=== PATIENT | male | born 1960 | race Caucasian/White ===

== ENCOUNTER 2016-06-19 10:34 | Emergency (ER) | payer BC, MEDICAID ==
[~2016-06-19] VITALS: Ht 160 cm; Wt 52.2 kg
[2016-06-19] MEDS ORDERED: BREO1INH INH (10:55)
[2016-06-19] MEDS ORDERED: UNKNOWN BP MED (10:55)
[2016-06-19] MEDS ORDERED: ACET30TAB PO (12:24)
--- NOTE | 2016-06-19 12:44 | REP ---
AP view of the pelvis: Single view. History: Low back and bilateral hip pain. Findings: The bony pelvic ring is intact. No bony destructive lesion or fracture is seen. Sacrum and SI joints are unremarkable. Proximal femurs are intact. Hip joint spaces are preserved. Impression: Negative AP view of the pelvis. Signed by Jp Rmaos MD 06/19/2016 01:44 P
--- NOTE | 2016-06-19 12:47 | REP ---
Lumbar spine series: Six views. History: Low back pain. Bilateral hip pain. Comparison radiographs are from October 14, 2015. Findings: Lumbar vertebral body heights are preserved. Alignment is normal. There is degenerative disc narrowing and discogenic spurring at L4-5, L3-4, L2-3 and to a lesser extent at L5-S1. This is unchanged. No fracture or collapse is seen. Pedicles and posterior elements are intact. Psoas margins are symmetric. Sacrum and SI joints are unremarkable. Impression: Degenerative disc disease at multiple levels, unchanged from the comparison study. No acute bony abnormality. Signed by Jp Ramos MD 06/19/2016 01:45 P
[2016-06-19 13:01] VITALS: BP 158/98
== END 2016-06-19 13:08 | disposition home or self-care (01) ==
LOC: M ED 11:21
DX: M54.16 Radiculopathy, lumbar region (principal)

== ENCOUNTER 2017-04-29 08:13 | Emergency (ER) | payer OTHER ==
[2017-04-29] MEDS: KETOROLAC 60 MG/2 ML VIAL (J1885) IM (09:16)
== END 2017-04-29 09:36 | disposition home or self-care (01) ==
LOC: M ED 08:13
DX: S39.82XA Other specified injuries of lower back, initial encounter (principal); I10 Essential (primary) hypertension; J44.9 Chronic obstructive pulmonary disease, unspecified; F17.210 Nicotine dependence, cigarettes, uncomplicated; X50.0XXA Overexertion from strenuous movement or load, initial encounter; Y92.099 Unspecified place in other non-institutional residence as the place of occurrence of the external cause; Y93.89 Activity, other specified
CPT/HCPCS: J1885

== ENCOUNTER → 2017-05-26 | Outpatient (REF) | payer OTHER ==
[2017-05-26 12:45] LABS: BASO # 0.1 10^3/uL (0.0-0.2); BASO % 0.7 % (0.0-1.0); EOS # 0.4 10^3/uL (0.0-0.50); EOS % 2.9 % (0.0-3.0); HEMATOCRIT 50.2 % (42.0-52.0); HEMOGLOBIN 16.4 g/dl (14.0-18.0); IMMATURE GRANULOCYTE # 0.1 10^3/uL (0-0); IMMATURE GRANULOCYTE % 0.5 % (0-3.0); LYMPH # 1.8 10^3/uL (1.5-4.5); LYMPH % 14.8 % (24.0-44.0); MEAN CORPUSCULAR HEMOGLOBIN 30.4 pg (27.0-33.0); MEAN CORPUSCULAR HGB CONC 32.7 g/dl (32.0-36.5); MONO # 1.2 10^3/uL (0.0-0.8); MONO % 10.1 % (0.0-5.0); NEUTROPHILS # 8.6 10^3/uL (1.8-7.7); PLATELET COUNT, AUTOMATED 328 10^3/uL (150-450); RED CELL DISTRIBUTION WIDTH 13.5 % (11.5-14.5); WHITE BLOOD COUNT 12.2 10^3/uL (4.0-10.0)
[2017-05-26 13:14] LABS: ALBUMIN/GLOBULIN RATIO 1.25 (1.00-1.93); ALKALINE PHOSPHATASE 46 U/L (45-117); ALT/SGPT 16 U/L (12-78); ANION GAP 6 MEQ/L (8-16); AST/SGOT 8 U/L (7-37); BILIRUBIN,TOTAL 0.5 MG/DL (0.2-1.0); BLOOD UREA NITROGEN 27 MG/DL (7-18); CALCIUM LEVEL 9.1 MG/DL (8.5-10.1); CARBON DIOXIDE LEVEL 30 MEQ/L (21-32); CHLORIDE LEVEL 107 MEQ/L (98-107); CHOLESTEROL LEVEL 150 MG/DL (<200); CHOLESTEROL RISK RATIO 4.166 (<5); CREATININE FOR GFR 1.13 MG/DL (0.70-1.30); GLOMERULAR FILTRATION RATE > 60.0 (>56); GLUCOSE, FASTING 96 MG/DL (70-100); HDL CHOLESTEROL 36 MG/DL (>40); LDL CHOLESTEROL 98.6 MG/DL (<100); NON-HDL-C 114 MG/DL; POTASSIUM SERUM 4.6 MEQ/L (3.5-5.1); PROSTATIC SPECIFIC AG MONITOR 0.76 NG/ML (< 4.0); SODIUM LEVEL 143 MEQ/L (136-145); THYROID STIMULATING HORMONE 0.857 uIU/ML (0.358-3.740); TOTAL PROTEIN 7.2 GM/DL (6.4-8.2); TRIGLYCERIDES LEVEL 77 MG/DL (<150)
[2017-05-26 13:16] LABS: ESTIMATED AVERAGE GLUCOSE 114 MG/DL (60-110); HEMOGLOBIN A1c 5.6 %
== END ==
LOC: M LABDRWAD 12:23
DX: R39.198 Other difficulties with micturition (principal); M25.551 Pain in right hip; M25.552 Pain in left hip; M54.5 Low back pain; I10 Essential (primary) hypertension; Z79.899 Other long term (current) drug therapy; J44.9 Chronic obstructive pulmonary disease, unspecified; E55.9 Vitamin D deficiency, unspecified
CPT/HCPCS: 84443

== ENCOUNTER → 2017-08-12 | Outpatient (CLI) | payer OTHER | LOC: M RAD 09:50 | DX: M51.36 Other intervertebral disc degeneration, lumbar region (principal) | CPT/HCPCS: 72072 ==

== ENCOUNTER → 2017-08-25 | Outpatient (REF) | payer OTHER ==
[2017-08-25 12:53] LABS: C REACTIVE PROTEIN QUANTITATIV 0.43 MG/DL (0.00-0.30); CHOLESTEROL LEVEL 148 MG/DL (<200); CHOLESTEROL RISK RATIO 4.111 (<5); HDL CHOLESTEROL 36 MG/DL (>40); NON-HDL-C 112 MG/DL; TRIGLYCERIDES LEVEL 90 MG/DL (<150)
[2017-08-25 12:55] LABS: ERYTHROCYTE SEDIMENTATION RATE 6 mm/hr (0-20)
[2017-08-26 11:21] LABS: HEPATITIS C VIRUS ABY INDEX < 0.0 INDEX (<0.8)
[2017-08-26 11:23] LABS: HIV 1&2 SCREEN CENTAUR NEGATIVE (NEGATIVE)
== END ==
LOC: M LAB REF 12:09
DX: Z11.4 Encounter for screening for human immunodeficiency virus [HIV] (principal); Z13.220 Encounter for screening for lipoid disorders; Z11.59 Encounter for screening for other viral diseases; M54.5 Low back pain

== ENCOUNTER → 2017-09-29 | Outpatient (CLI) | payer OTHER | LOC: M RAD 07:47 | DX: Z12.2 Encounter for screening for malignant neoplasm of respiratory organs (principal); Z87.891 Personal history of nicotine dependence; R91.8 Other nonspecific abnormal finding of lung field; J84.10 Pulmonary fibrosis, unspecified | CPT/HCPCS: G0297 ==

== ENCOUNTER 2017-10-31 08:37 | Day surgery (SDC) | payer OTHER ==
[2017-10-31] MEDS ORDERED: LIDOCAINE 2% INJ 100 MG/5 ML SDV (FOR ANES.) As Ordered (09:03)
[2017-10-31] MEDS ORDERED: PROPOFOL 200 MG/20 ML VIAL As Ordered (09:26)
[2017-10-31] MEDS ORDERED: NS 1,000 ML IV (09:30)
== END 2017-10-31 10:20 | disposition home or self-care (01) ==
LOC: M OPP 08:37
DX: Z12.11 Encounter for screening for malignant neoplasm of colon (principal); K57.30 Diverticulosis of large intestine without perforation or abscess without bleeding; I10 Essential (primary) hypertension; M19.90 Unspecified osteoarthritis, unspecified site; J44.9 Chronic obstructive pulmonary disease, unspecified; G47.30 Sleep apnea, unspecified; F17.210 Nicotine dependence, cigarettes, uncomplicated; Z79.899 Other long term (current) drug therapy
CPT/HCPCS: 45378

== ENCOUNTER 2017-12-19 14:04 | Outpatient (RCR) | payer OTHER | END 2018-01-01 | LOC: M PT 12-23 08:09 | DX: M54.5 Low back pain (principal) ==

== ENCOUNTER → 2017-12-28 | Outpatient (CLI) | payer OTHER | LOC: M SLEEP 19:36 | DX: G47.33 Obstructive sleep apnea (adult) (pediatric) (principal) | CPT/HCPCS: 95811 ==

== ENCOUNTER 2018-01-13 08:44 | Outpatient (RCR) | payer OTHER | END 2018-02-01 | LOC: M PT 08:44 | DX: M54.5 Low back pain (principal) | CPT/HCPCS: 97010 ==

== ENCOUNTER 2018-05-20 08:50 | Emergency (ER) | payer OTHER, SELFPAY ==
[~2018-05-20] VITALS: Ht 160 cm; Wt 51.4 kg
[~2018-05-20 08:50] MED LIST: ACET30TAB PO; AMLO5TAB6 PO; BREO1INH INH; IBUP-1114 PO; LISI-538 PO; METO1TAB33 PO; UNKNOWN BP MED; VENTAER INH
[2018-05-20] MEDS ORDERED: METO1TAB33 PO (08:57)
[2018-05-20] MEDS ORDERED: ACETAMINOPHEN 325 MG TAB PO ONE (09:30)
[2018-05-20 09:49] LABS: BASO % 0.4 % (0.0-1.0); EOS % 0.1 % (0.0-3.0); HEMOGLOBIN 16.6 g/dl (13.5-17.5); LYMPH % 9.8 % (24.0-44.0); MEAN CORPUSCULAR HEMOGLOBIN 31.1 pg (27.0-33.0); MEAN CORPUSCULAR HGB CONC 33.2 g/dl (32.0-36.5); MEAN CORPUSCULAR VOLUME 93.6 fl (80.0-96.0); MONO # 1.4 10^3/uL (0.0-0.8); MONO % 13.6 % (0.0-5.0); NEUTROPHILS # 7.7 10^3/uL (1.8-7.7); NEUTROPHILS % 75.7 % (36.0-66.0); PLATELET COUNT, AUTOMATED 202 10^3/uL (150-450); RED BLOOD COUNT 5.34 10^6/uL (4.30-6.10); WHITE BLOOD COUNT 10.2 10^3/uL (4.0-10.0)
[2018-05-20 10:04] LABS: INFLUENZA A AMPLIFICATION POSITIVE (NEGATIVE); INFLUENZA B AMPLIFICATION NEGATIVE (NEGATIVE)
[2018-05-20 10:16] LABS: ALBUMIN 4.3 GM/DL (3.2-5.2); ALT/SGPT 14 U/L (12-78); BILIRUBIN,TOTAL 0.5 MG/DL (0.2-1.0); BLOOD UREA NITROGEN 18 MG/DL (7-18); CALCIUM LEVEL 8.5 MG/DL (8.5-10.1); CARBON DIOXIDE LEVEL 27 MEQ/L (21-32); CHLORIDE LEVEL 104 MEQ/L (98-107); CREATININE FOR GFR 1.18 MG/DL (0.70-1.30); GLOMERULAR FILTRATION RATE > 60.0 (>56); GLUCOSE, FASTING 103 MG/DL (70-100); SODIUM LEVEL 136 MEQ/L (136-145); TOTAL PROTEIN 7.8 GM/DL (6.4-8.2)
[2018-05-20] MEDS ORDERED: IPRATROPIUM 0.5MG/ALBUTEROL 2.5MG INH SOL UD 3ML (DUONEB)(J7620) NEB ONE (10:30)
--- NOTE | 2018-05-20 10:37 | REP ---
CHEST PA/LATERAL: 05/20/2018. COMPARISON: Low-dose lung screening CT 09/29/2017, chest x-ray 10/16/2015. CLINICAL HISTORY: Fever, dyspnea, COPD. FINDINGS: Two views show the lung de jesus well inflated. CP angles are sharply defined. There is peribronchial thickening that may reflect bronchitis or reactive airway disease. In the infrahilar region on the lateral view, more elongated thickened bronchial mancilla noted that may reflect some bronchiectasis. (Mild cylindrical bronchiectasis is seen on that CT last year.) No effusion or dense consolidation. No mass. The heart, mediastinal, hilar, and aortic contours unremarkable. Airway intact. Bones without acute finding. No free air. IMPRESSION: 1. Perihilar changes of bronchitis or bronchiectasis without dense consolidation, pleural effusion, or other significant finding. Electronically Signed by Cisco Pastrana MD 05/20/2018 07:38 P
[2018-05-20] MEDS ORDERED: MUCI30TA5 PO (10:43)
[2018-05-20] MEDS ORDERED: OSEL75CA PO (10:43)
[2018-05-20] MEDS ORDERED: VENTAER INH (10:43)
[2018-05-20] MEDS ORDERED: PRED20TA PO (10:43)
[2018-05-20 11:01] VITALS: BP 109/69
== END 2018-05-20 11:02 | disposition home or self-care (01) ==
LOC: M ED 08:50
DX: J20.9 Acute bronchitis, unspecified (principal); J09.X2 Influenza due to identified novel influenza A virus with other respiratory manifestations; J44.9 Chronic obstructive pulmonary disease, unspecified; I10 Essential (primary) hypertension; Z72.0 Tobacco use; Z79.899 Other long term (current) drug therapy

== ENCOUNTER 2018-09-23 08:39 | Emergency (ER) | payer OTHER, SELFPAY ==
[~2018-09-23] VITALS: Ht 160 cm; Wt 53.9 kg
[~2018-09-23 08:39] MED LIST changes: +ACET-716 PO; -ACET30TAB PO; +MUCI30TA5 PO; +OSEL75CA PO; +PRED20TA PO
[2018-09-23] MEDS ORDERED: ACETAMINOPHEN TAB 650MG DOSE (2X325MG) PO ONE (09:30)
[2018-09-23] MEDS ORDERED: LISINOPRIL 20 MG TAB PO ONE (09:45)
[2018-09-23] MEDS ORDERED: amLODIPine 5 MG TAB PO ONE (09:45)
[2018-09-23] MEDS ORDERED: METOPROLOL SUCC (TopROL XL) 100MG *XL* TAB PO ONE (09:45)
[2018-09-23] MEDS ORDERED: LISI-538 PO (10:17)
[2018-09-23] MEDS ORDERED: NORV5TAB PO (10:17)
--- NOTE | 2018-09-23 10:20 | REP ---
PA and lateral chest: Comparisons are 10/16/2015 and 05/20/2018. The lung de jesus are clear. The cardiac size is normal. The mireille, mediastinum, and skeletal structures are unremarkable. There is a small stable granuloma in the right mid lung, unchanged from 10/16/2015. Impression: Negative PA and lateral chest. There is no interval change. Electronically Signed by Jeancarlos Tavares MD 09/23/2018 10:11 A
[2018-09-23] MEDS ORDERED: CYCL10TA PO (10:21)
[2018-09-23 11:03] VITALS: BP 173/98
[2018-09-23 12:16] VITALS: BP 160/98
== END 2018-09-23 12:17 | disposition home or self-care (01) ==
LOC: M ED 08:39
DX: R31.9 Hematuria, unspecified (principal); I10 Essential (primary) hypertension; M25.551 Pain in right hip; M25.552 Pain in left hip; Z79.899 Other long term (current) drug therapy; F17.210 Nicotine dependence, cigarettes, uncomplicated

== ENCOUNTER → 2018-10-26 | Outpatient (REF) | payer OTHER ==
[~2018-10-26] MED LIST changes: +CYCL10TA PO; +NORV5TAB PO
[2018-10-26 13:11] LABS: BASO # 0.1 10^3/uL (0.0-0.2); BASO % 1.5 % (0.0-1.0); EOS # 0.3 10^3/uL (0.0-0.50); EOS % 4.1 % (0.0-3.0); HEMATOCRIT 45.5 % (42.0-52.0); HEMOGLOBIN 15.4 g/dl (13.5-17.5); LYMPH % 26.4 % (24.0-44.0); MEAN CORPUSCULAR HEMOGLOBIN 30.8 pg (27.0-33.0); MEAN CORPUSCULAR HGB CONC 33.8 g/dl (32.0-36.5); MONO # 0.7 10^3/uL (0.0-0.8); MONO % 8.9 % (0.0-5.0); NEUTROPHILS # 4.4 10^3/uL (1.8-7.7); PLATELET COUNT, AUTOMATED 317 10^3/uL (150-450); WHITE BLOOD COUNT 7.4 10^3/uL (4.0-10.0)
[2018-10-26 13:29] LABS: ALBUMIN 3.7 GM/DL (3.2-5.2); ALT/SGPT 16 U/L (12-78); BILIRUBIN,TOTAL 0.4 MG/DL (0.2-1.0); BLOOD UREA NITROGEN 18 MG/DL (7-18); CARBON DIOXIDE LEVEL 28 MEQ/L (21-32); CHLORIDE LEVEL 111 MEQ/L (98-107); CHOLESTEROL LEVEL 162 MG/DL (<200); CHOLESTEROL RISK RATIO 4.263 (<5); CREATININE FOR GFR 0.99 MG/DL (0.70-1.30); GLOMERULAR FILTRATION RATE > 60.0 (>56); GLUCOSE, FASTING 89 MG/DL (70-100); HDL CHOLESTEROL 38 MG/DL (>40); LDL CHOLESTEROL 105 MG/DL (<100); NON-HDL-C 124 MG/DL; POTASSIUM SERUM 4.7 MEQ/L (3.5-5.1); SODIUM LEVEL 143 MEQ/L (136-145); TRIGLYCERIDES LEVEL 97 MG/DL (<150)
[2018-10-26 13:44] LABS: HEMOGLOBIN A1c 6.4 %
== END ==
LOC: M LAB REF 12:46
PROVIDERS: ATTEND Nurse Practitioner Family
DX: I10 Essential (primary) hypertension (principal); Z13.29 Encounter for screening for other suspected endocrine disorder

== ENCOUNTER → 2019-01-23 | Outpatient (REF) | payer OTHER ==
[2019-01-23 13:19] LABS: ALBUMIN 3.7 GM/DL (3.2-5.2); ALT/SGPT 10 U/L (12-78); BILIRUBIN,TOTAL 0.4 MG/DL (0.2-1.0); BLOOD UREA NITROGEN 16 MG/DL (7-18); CALCIUM LEVEL 9.2 MG/DL (8.5-10.1); CARBON DIOXIDE LEVEL 29 MEQ/L (21-32); CHLORIDE LEVEL 110 MEQ/L (98-107); CHOLESTEROL LEVEL 169 MG/DL (<200); CHOLESTEROL RISK RATIO 4.225 (<5); CREATININE FOR GFR 1.05 MG/DL (0.70-1.30); GLOMERULAR FILTRATION RATE > 60.0 (>56); GLUCOSE, FASTING 101 MG/DL (70-100); HDL CHOLESTEROL 40 MG/DL (>40); HEMOGLOBIN A1c 5.3 %; LDL CHOLESTEROL 114 MG/DL (<100); NON-HDL-C 129 MG/DL; POTASSIUM SERUM 4.7 MEQ/L (3.5-5.1); SODIUM LEVEL 142 MEQ/L (136-145); TOTAL PROTEIN 6.8 GM/DL (6.4-8.2); TRIGLYCERIDES LEVEL 77 MG/DL (<150)
== END ==
LOC: M LAB REF 12:23
PROVIDERS: ATTEND Nurse Practitioner Family
DX: Z00.01 Encounter for general adult medical examination with abnormal findings (principal)

== ENCOUNTER → 2019-11-30 | Outpatient (CLI) | payer BC, OTHER ==
[~2019-11-30] MED LIST changes: +AMLO1TAB24 PO; -AMLO5TAB6 PO; +CYCL-707 PO; -CYCL10TA PO
--- NOTE | 2019-12-31 16:25 | REP ---
LOW-DOSE SCREENING CT OF THE LUNGS COMPARISON: 09/29/2017. REASON FOR EXAM: Tobacco abuse. Follow-up. FINDINGS: Once again, as per the protocol, only lung window images were sent to the read station for interpretation. Once again, there are numerable stable appearing calcified and noncalcified pulmonary nodules. There is no evidence of a definite new abnormal nodule, mass, or opacity. Once again, the lung de jesus are hyperexpanded and there is biapical pleural parenchymal scarring with small bullae and pleural blebs status quo. Once again, there is cylindrical bronchiectasis status quo. There are no pleural or pericardial effusions. Grossly the mediastinum and pulmonary mireille are unchanged. Grossly the imaged upper abdomen and imaged osseous structures are unchanged. IMPRESSION: Numerable, but stable appearing, calcified and noncalcified pulmonary nodules. Lung-RADS Category [address] of the chest is recommended as per the revised Fleischner Society Criteria. MTDD
== END ==
LOC: M RAD 06:48
PROVIDERS: ATTEND Physician Assistant
DX: Z72.0 Tobacco use (principal); J44.9 Chronic obstructive pulmonary disease, unspecified; R91.8 Other nonspecific abnormal finding of lung field

== ENCOUNTER → 2020-01-14 | Outpatient (CLI) | payer BC ==
--- NOTE | 2020-01-18 05:25 | ECWPNPC ---
PATIENT NAME: JUNIOR PALUMBO : 1960 GENDER: MALE VISIT DATE: 01/14/2020 DISCHARGE DATE: 01/14/20 1011 VISIT LOCKED DATE TIME: PHYSICIAN: JUSTEN SULLIVAN RESOURCE: JUSTEN SULLIVAN REASON FOR APPOINTMENT 1. 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 PAIN BEGAN ABOUT ONE YEAR AGO. 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 PAIN IS LOCATED ACROSS LOW BACK WITH INTERMITTENT SHOOTING PAIN INTO HIS THIGHS. PAIN IS AGGRAVATED BY INCREASED ACTIVITY AND LIFTING. PAIN IS RELIEVED SOMEWHAT WITH IBUPROFEN, TYLENOL AND HEAT. STATES HE HAD AN X-RAY OF THE LUMBAR SPINE ONE YEAR AGO. FINISHED PHYSICAL THERAPY APPROXIMATELY 4 MONTHS AGO. REPORTS SOME IMPROVEMENT WITH PHYSICAL THERAPY BUT THEN PAIN RETURNED TO BASELINE. 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 LIVES WITH HIS WHO IS DISABLED. DISCUSSED TREATMENT PLAN. DENIES RECENT FEVER OR ILLNESS OR SUDDEN WEIGHT LOSS. DENIES BOWEL OR BLADDER INCONTINENCE. PHQ-9 LITTLE INTEREST OR PLEASURE IN DOING THINGSSEVERAL DAYS FEELING DOWN, DEPRESSED, OR HOPELESSSEVERAL DAYS TROUBLE FALLING OR STAYING ASLEEP, OR SLEEPING TOO MUCHNEARLY EVERY DAY FEELING TIRED OR HAVING LITTLE ENERGYNEARLY EVERY DAY POOR APPETITE OR OVEREATING NOT AT ALL FEELING BAD ABOUT YOURSELF-OR THAT YOU ARE A FAILURE OR HAVE LET YOURSELF OR YOUR FAMILY DOWN SEVERAL DAYS TROUBLE CONCENTRATING ON THINGS, SUCH READING THE NEWSPAPER OR WATCHING TELEVISION SEVERAL DAYS MOVING OR SPEAKING SO SLOWLY THAT OTHER PEOPLE COULD HAVE NOTICED. OR THE OPPOSITE- BEING SO FIDGETY OR RESTLESS THAT YOU HAVE BEEN MOVING AROUND A LOT MORE THAN USUALNOT AT ALL THOUGHTS THAT YOU WOULD BE BETTER OFF , OR OF HURTING YOURSELF IN SOME WAY?NOT AT ALL TOTAL SCORE:10 INTERPRETATIONMODERATE DEPRESSION PHQ-2 (2015 EDITION) LITTLE INTEREST OR PLEASURE IN DOING THINGS?SEVERAL DAYS FEELING DOWN, DEPRESSED, OR HOPELESS?SEVERAL DAYS TOTAL SCORE2 GENERAL: - -. FALL RISK SCREENING: SCREENING :NO FALLS REPORTED IN THE LAST YEAR PAIN SCREENING: PATIENT HAS A COMPLAINT OF ACUTE OR CHRONIC PAIN :YES LOCATION OF PAIN:LOW BACK INTENSITY OF PAIN (SCALE OF 1 TO 10):4 WHAT DOES YOUR PAIN FEEL LIKE:SHARP, OTHER PULLING SENSATION DURATION:CONTINOUS PAIN IS INCREASED BY:ACTIVITIES, PROLONGED STANDING PAIN IS DECREASED BY:USE OF PAIN MEDICATIONS NURSING NOTE: - -. PAIN CENTER INTAKE QUESTIONS: DO YOU HAVE A HISTORY OF MRSA? :NO DO YOU TAKE A BLOOD THINNERS? :NO DO YOU HAVE ANY BLEEDING DISORDERS? :NO ANY NEW NUMBNESS OR WEAKNESS IN YOUR LEGS OR ARMS? :YES BILAT LEG WEAKNESS ANY PACEMAKER,DEFIBRILLATOR, OR DORSAL COLUMN STIMULATOR? :NO DO YOU HAVE ANY RASHES OR OPEN SORES? :NO ARE YOU ALLERGIC TO IV DYE? :NO ARE YOU DIABETIC? :NO ANY NEW PROBLEMS WITH YOUR MEDICATIONS? :NO HAVE YOU RECEIVED A VACCINE IN THE PAST 30 DAYS? :NO DO YOU PLAN TO RECEIVE A VACCINE IN THE NEXT 21 DAYS? :NO DO YOU NEED ANY PRESCRIPTION? :NO DO YOU TAKE ANY IMMUNOSUPPRESSIVE MEDICATIONS? :NO CURRENT MEDICATIONS TAKING LISINOPRIL 20 MG TABLET 1 TABLET ORALLY ONCE A DAY TAKING TOPROL XL 100 MG TABLET EXTENDED RELEASE 24 HOUR 1 TABLET ORALLY ONCE A DAY TAKING VENTOLIN HFA 108 (90 BASE) MCG/ACT AEROSOL SOLUTION 1 PUFF NEEDED INHALATION EVERY 4 HRS TAKING LIDOCAINE & ADHESIVE SHEET 5 % KIT DIRECTED EXTERNALLY TAKING CYCLOBENZAPRINE HCL 10 MG TABLET DIRECTED ORALLY TID PRN TAKING MAY HAVE - - FLUTICASONE PROPIONATE AND SALMETEROL INHALATION POWDER 113 MCG/14 MCG INH 1 PUFF BY MOUTH TWICE DAILY, RINSE MOUTH AFTER USE NOT-TAKING AMLODIPINE BESYLATE 5 MG TABLET 1 TABLET ORALLY ONCE A DAY NOT-TAKING MOBIC 7.5 MG TABLET 1 TABLET ORALLY ONCE A DAY MEDICATION LIST REVIEWED AND RECONCILED WITH THE PATIENT PAST MEDICAL HISTORY HTN COPD ALLERGIES N.K.D.A. SURGICAL HISTORY DENIES PAST SURGICAL HISTORY FAMILY HISTORY FATHER: MOTHER: 2 SISTER(S) . 1 SON(S) , 1 DAUGHTER(S) - HEALTHY. SOCIAL HISTORY GENERAL: TOBACCO USE ARE YOU A:CURRENT SMOKER ARE YOU INTERESTED IN QUITTING?THINKING ABOUT QUITTING HOW MANY CIGARETTES A DAY DO YOU SMOKE?11-20 LATEX QUESTIONNAIRE LATEX ALLERGY : HAVE YOU EVER DEVELOPED ANY TYPE OF REACTION AFTER HANDLING LATEX PRODUCTS SUCH RUBBER GLOVES, CONDOMS, DIAPHRAGMS, BALLOONS, SOCKS, OR UNDERWEAR?NO LATEX ALLERGY : HAVE YOU EVER DEVELOPED ANY TYPE OF REACTION DURING OR AFTER DENTAL APPOINTMENT, VAGINAL/RECTAL EXAMINATION, SURGICAL PROCEDURE, OR ANY OTHER EXPOSURE?NO LATEX RISK : HAVE YOU EVER HAD ANY DIFFICULTY BREATHING OR HIVES AFTER EATING OR HANDLING ANY FRUITS, OR VEGETABLES; SUCH KIWI, BANANAS, STONE FRUITS, OR CHESTNUTSNO LATEX RISK : DO YOU HAVE A PREVIOUS PERSONAL HISTORY OF MORE THAN NINE SURGERIES, SPINA BIFIDA, OR REPEATED CATHERIZATIONS? NO LATEX RISK : ARE YOU FREQUENTLY EXPOSED TO LATEX PRODUCTS IN YOUR OCCUPATION?NO DATE ASKED : 01/10/2020 ALCOHOL SCREENING DID YOU HAVE A DRINK CONTAINING ALCOHOL IN THE PAST YEAR?NO POINTS0 INTERPRETATIONNEGATIVE RECREATIONAL DRUG USE DRUG USE?NO LANGUAGE LANGUAGES SPOKEN:[facility] PFS, CLERGY, PUBLIC HEALTH REFERRALS HAS THE PATIENT BEEN EDUCATED REGARDING HIS/HER PLAN OF CARE?YES HAS THE PATIENT BEEN EDUCATED REGARDING PAIN, THE RISK FOR PAIN, THE IMPORTANCE OF EFFECTIVE PAIN MANAGEMENT, AND THE PAIN ASSESSMENT PROCESS?YES HOSPITALIZATION/MAJOR DIAGNOSTIC PROCEDURE DENIES PAST HOSPITALIZATION REVIEW OF SYSTEMS CONSTITUTIONAL: ANY RECENT FEVER NO . CHILLS NO . WEIGHT CHANGE OF UNKNOWN REASONS NO . MUSCULOSKELETAL: ANY UNUSUAL JOINT PAIN OR SWELLING NOT MENTIONED NO . SYSTEMIC LUPUS NO . ANY NEUROMUSCULAR DISORDER NOT MENTIONED NO . LYME DISEASE NO . GASTROENTEROLOGY: ANY NEW CHANGE IN BOWEL CONTROL? NO . HISTORY OF LIVER DISORDER NOT MENTIONED NO . HISTORY OF UNUSUAL ABDOMINAL PAIN OR CRAMPING NOT MENTIONED NO . NO CONSTIPATION. GENITOURINARY: ANY NEW CHANGE IN BLADDER CONTROL? NO . ANY RENAL/KIDNEY CONDITON NOT MENTIONED NO . NEUROLOGY: HISTORY OF TBI NOT MENTIONED NO . OTHER NEW NUMBNESS OR PAIN PATTERNS NOT MENTIONED NO . NEW ONSET DIZZINESS OR NEUROLOGICAL CHANGES NOT MENTIONED NO . HISTORY OF SEVERE HEADACHES NOT MENTIONED NO . HISTORY OF STROKE OR NEUROLOGICAL DISORDER NOT MENTIONED NO . CARDIOLOGY: HEART SURGERY NO . CONGESTIVE HEART FAILURE/FLUID OVERLOAD NOT MENTIONED NO . HISTORY OF CHEST PAIN,IRREGULAR HEART BEAT NOT MENTIONED NO . RESPIRATORY: SHORTNESS OF BREATH ON EXERTION, WHEEZES, UNUSUAL COUGH NOT MENTIONED NO . ENDOCRINOLOGY: ADRENAL GLAND OR THYROID DISORDERS NOT MENTIONED NO . UNUSUAL URINATION, DIZZINESS OR LETHARGY NOT MENTIONED NO . VITAL SIGNS WT 119.8 LBS, HT 63 IN, BMI 21.22 INDEX, BP 144/83 MM HG, HR 87 /MIN, RR 16 /MIN, TEMP 97.3 F, OXYGEN SAT % 100%, BLOOD GLUCOSE LEVEL 97.3, SAFE IN ENV? (Y/N) YES, REVIEWED BY: DONNA. EXAMINATION GENERAL EXAMINATION: GENERAL AWAKE,ALERT ,PLEASANT . PSYCH AFFECT NORMAL . NECK: TRACHEA MIDLINE. NO CERVICAL OR SUPRACLAVICULAR LYMPHADENOPATHY NOTED. LUNGS: LUNG DISLA ARE CLEAR TO AUSCULTATION BILATERALLY. GOOD MOVEMENT OF AIR . HEART: S1, S2 IN A REGULAR RATE AND RHYTHM. NO SIGNIFICANT MURMURS, RUBS OR GALLOPS NOTED . ABDOMEN: SOFT/NONTENDER. MUSCULOSKELETAL: MUSCLE STRENGTH TESTING 5/5 BILATERAL UPPER/LOWER EXTREMITIES. LUMBAR: PALPATION: SPECIFIC POINT TENDERNESS NOTED OVER SIJ LEFT GREATER THAN RIGHT. TENDERNESS NOTED OVER HIPS BILATERALLY. RANGE OF JOINT MOTION OF THE SPINE WITH INCREASED PAIN IN LOW BACK.. CERVICAL: NEGATIVE FOR PAIN WITH PALPATION OF CERVICAL SPINE. NEGATIVE FOR PAIN WITH PALPATION OF CERVICAL PARASPINALS. NEGATIVE FOR PAIN WITH PALPATION OF TRAPEZIUS BILAT. SKIN: NO RASH OR SKIN LESIONS. NEUROLOGIC EXAM: CN'S NORMAL TESTED , DTRS 1-2+ IN ALL 4 EXTREMITIES. DIAGNOSTIC TESTS REVIEWED MRI L/S SPINE- MRI C-SPINE-. 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 WE WILL NEED MRI OF THE LS-SPINE TO ESTABLISH INTERVENTIONAL TREATMENT PLAN. START IBUPROFEN 200 MG 3 TABLETS WITH TYLENOL 500 MG 2 TABLETS 3 TIMES DAILY. FOLLOW-UP IN 2 MONTHS TO REVIEW MRI AND ESTABLISH TREATMENT PLAN. OTHERS CLINICAL NOTES: 01/10/20 @ 1425 SO SEGOVIA RN BSN. PROCEDURE CODES FA211 ESTABILISHED PATIENT [facility] FACILITY CHARGE DISPOSITION & COMMUNICATION FOLLOW UP 2 MONTHS (REASON: REVIEW MRI/ESTABLISH TREATMENT PLAN FOR LOW BACK PAIN.) ELECTRONICALLY SIGNED BY JIN LEROY ON 01/17/2020 AT 01:21 PM EDT DISCLAIMER : THIS IS A VISIT SUMMARY EXTRACTED FROM THE [employer] CHART. IT IS NOT A COPY OF THE [employer] PROGRESS NOTE. DEMARCO
== END ==
LOC: M PAIN 08:30
PROVIDERS: ATTEND Nurse Practitioner Family
DX: M54.40 Lumbago with sciatica, unspecified side (principal); I10 Essential (primary) hypertension; J44.9 Chronic obstructive pulmonary disease, unspecified; F17.210 Nicotine dependence, cigarettes, uncomplicated; Z79.899 Other long term (current) drug therapy

== ENCOUNTER → 2020-01-24 | Outpatient (CLI) | payer BC ==
--- NOTE | 2020-01-24 09:17 | REPVR ---
PROCEDURE INFORMATION: Exam: MR Lumbar Spine Without Contrast. Exam date and time: 01/24/2020 9:00 AM Age: 59 years old Clinical indication: Pain; Lumbago; Additional info: Lumbago lumbar region TECHNIQUE: Imaging protocol: Multiplanar magnetic resonance images of the lumbar spine without intravenous contrast. COMPARISON: CR Spine. Lumbosacral, complete 08/12/2017 10:03 AM FINDINGS: Vertebrae: Unremarkable. Spinal cord: There is a fatty filum terminale. T12-L1: There is degenerative disc disease including disc space narrowing and dessication. There is mild disc bulging. L1-L2: No significant disc disease. No significant spinal canal stenosis. No neural foraminal stenosis. L2-L3: There is degenerative disc disease including disc space narrowing and dessication. There is a moderate disc bulge with a small superimposed right paracentral disc herniation. Disc bulging extends into both neural foramen causing mild bilateral neural foraminal narrowing. There is facet arthropathy and ligamentum flavum hypertrophy. L3-L4: There is degenerative disc disease including disc space narrowing and dessication. There is a moderate disc/osteophyte complex that flattens the ventral thecal sac. There is mild bilateral neuroforaminal narrowing. There is a posterior annular tear. There is facet arthropathy and ligamentum flavum hypertrophy. L4-L5: There is minimal retrolisthesis at L4/5. There is degenerative disc disease including disc space narrowing and dessication. There is a moderate disc/osteophyte complex that flattens the ventral thecal sac. There is mild bilateral neuroforaminal narrowing. There is facet arthropathy and ligamentum flavum hypertrophy. L5-S1: There is minimal retrolisthesis at L5/S1. There is degenerative disc disease including disc space narrowing and dessication. There is a moderate disc/osteophyte complex that flattens the ventral thecal sac. There is moderate bilateral neural foraminal narrowing. There is facet arthropathy and ligamentum flavum hypertrophy. Soft tissues: Unremarkable. IMPRESSION: Multilevel degenerative changes causing variable degrees of spinal canal and neuroforaminal narrowing as described above. Electronically signed by: Bear Arce On 01/24/2020 09:16:54 AM
== END ==
LOC: M RAD 07:55
PROVIDERS: ATTEND Nurse Practitioner Family
DX: M51.36 Other intervertebral disc degeneration, lumbar region (principal)

== ENCOUNTER → 2020-02-22 | Outpatient (REF) | payer BC ==
[2020-02-22 16:43] LABS: BASO # 0.1 10^3/uL (0.0-0.2); EOS # 0.2 10^3/uL (0.0-0.5); EOS % 2.7 % (0.0-3.0); HEMATOCRIT 48.3 % (42.0-52.0); LYMPH # 1.8 10^3/uL (1.5-5.0); LYMPH % 20.3 % (24.0-44.0); MEAN CORPUSCULAR HEMOGLOBIN 31.1 pg (27.0-33.0); MEAN CORPUSCULAR HGB CONC 33.1 g/dl (32.0-36.5); MONO # 0.8 10^3/uL (0.0-0.8); MONO % 8.8 % (0.0-5.0); NEUTROPHILS # 6.1 10^3/uL (1.5-8.5); NEUTROPHILS % 66.9 % (36.0-66.0); PLATELET COUNT, AUTOMATED 349 10^3/uL (150-450); RED BLOOD COUNT 5.14 10^6/uL (4.30-6.10); WHITE BLOOD COUNT 9.1 10^3/uL (4.0-10.0)
[2020-02-22 16:53] LABS: ALBUMIN 4.2 GM/DL (3.2-5.2); ALT/SGPT 13 U/L (12-78); BILIRUBIN,TOTAL 0.5 MG/DL (0.2-1.0); BLOOD UREA NITROGEN 17 MG/DL (7-18); CALCIUM LEVEL 9.6 MG/DL (8.8-10.2); CARBON DIOXIDE LEVEL 27 MEQ/L (21-32); CHLORIDE LEVEL 108 MEQ/L (98-107); CHOLESTEROL LEVEL 190 MG/DL (<200); CHOLESTEROL RISK RATIO 4.222 (<5); CREATININE FOR GFR 0.95 MG/DL (0.70-1.30); GLOMERULAR FILTRATION RATE > 60.0 (>49); GLUCOSE, FASTING 77 MG/DL (70-100); HDL CHOLESTEROL 45 MG/DL (>40); LDL CHOLESTEROL 124 MG/DL (<100); NON-HDL-C 145 MG/DL; SODIUM LEVEL 140 MEQ/L (136-145); THYROID STIMULATING HORMONE 0.546 uIU/ML (0.358-3.740); TOTAL PROTEIN 7.3 GM/DL (6.4-8.2); TRIGLYCERIDES LEVEL 104 MG/DL (<150)
== END ==
LOC: M LAB REF 15:57
PROVIDERS: ATTEND Physician Assistant
DX: I10 Essential (primary) hypertension (principal)

== ENCOUNTER → 2020-03-14 | Outpatient (CLI) | payer BC ==
--- NOTE | 2020-03-19 06:53 | ECWPNPC ---
PATIENT NAME: JUNIOR PALUMBO : 1960 GENDER: MALE VISIT DATE: 03/14/2020 DISCHARGE DATE: 03/14/20 0950 VISIT LOCKED DATE TIME: PHYSICIAN: JUSTEN SULLIVAN RESOURCE: JUSTEN SULLIVAN REASON FOR APPOINTMENT 1. REVIEW MRI/ESTABLISH TREATMENT PLAN FOR LOW BACK PAIN. HISTORY OF PRESENT ILLNESS GENERAL: HERE FOR FOLLOW-UP OF CHRONIC LOW BACK PAIN. MRI OF THE LS-SPINE THAT I ORDERED WAS DONE ON 01/24/2020. THIS IS REVIEWED WITH PATIENT. SHOWING MULTILEVEL DEGENERATIVE CHANGES CAUSING VARIABLE DEGREES OF SPINAL CANAL AND NEURAL FORAMINAL NARROWING. DISCUSSED TREATMENT OPTIONS INCLUDING INJECTION THERAPY THAT WE OFFER HERE. HE SEEMS RELUCTANT TO PURSUE THAT OPTION. 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 COMPLAINS OF SEVERE PAIN WITH LIFTING. DISCUSSED OPTION OF SURGICAL EVALUATION AND HE SEEMS RECEPTIVE TO THIS. DISCUSSED MEDICATIONS. I WOULD ADVISED NOT TO TAKE MUSCLE RELAXANTS AND DO HIS WORK THAT REQUIRES USE OF EQUIPMENT AND LIFTING. STATES THAT PRIMARY CARE PRESCRIBED CYCLOBENZAPRINE 10 MG 3 TIMES A DAY AND STATES IT IS HELPFUL. HE WILL DISCUSS THIS WITH PRIMARY CARE.-. FALL RISK SCREENING: SCREENING :NO FALLS REPORTED IN THE LAST YEAR PAIN SCREENING: PATIENT HAS A COMPLAINT OF ACUTE OR CHRONIC PAIN :YES LOCATION OF PAIN:LOW BACK INTENSITY OF PAIN (SCALE OF 1 TO 10):4 WHAT DOES YOUR PAIN FEEL LIKE:TENDER DURATION:INTERMITTENT PAIN IS INCREASED BY:ACTIVITIES, PROLONGED STANDING PAIN IS DECREASED BY:USE OF PAIN MEDICATIONS NURSING NOTE: -. PAIN CENTER INTAKE QUESTIONS: DO YOU HAVE A HISTORY OF MRSA? :NO DO YOU TAKE A BLOOD THINNERS? :NO DO YOU HAVE ANY BLEEDING DISORDERS? :NO ANY NEW NUMBNESS OR WEAKNESS IN YOUR LEGS OR ARMS? :NO ANY PACEMAKER,DEFIBRILLATOR, OR DORSAL COLUMN STIMULATOR? :NO DO YOU HAVE ANY RASHES OR OPEN SORES? :NO ARE YOU ALLERGIC TO IV DYE? :NO ARE YOU DIABETIC? :NO ANY NEW PROBLEMS WITH YOUR MEDICATIONS? :NO HAVE YOU RECEIVED A VACCINE IN THE PAST 30 DAYS? :NO DO YOU PLAN TO RECEIVE A VACCINE IN THE NEXT 21 DAYS? :NO DO YOU NEED ANY PRESCRIPTION? :NO DO YOU TAKE ANY IMMUNOSUPPRESSIVE MEDICATIONS? :NO IS THERE A CHANCE YOU COULD BE ? :NO ARE YOU BREAST FEEDING? :NO CURRENT MEDICATIONS TAKING LISINOPRIL 20 MG TABLET 1 TABLET ORALLY ONCE A DAY TAKING TOPROL XL 100 MG TABLET EXTENDED RELEASE 24 HOUR 1 TABLET ORALLY ONCE A DAY TAKING VENTOLIN HFA 108 (90 BASE) MCG/ACT AEROSOL SOLUTION 1 PUFF NEEDED INHALATION EVERY 4 HRS TAKING LIDOCAINE & ADHESIVE SHEET 5 % KIT DIRECTED EXTERNALLY ON 12 HOURS OFF 12 HOURS TAKING CYCLOBENZAPRINE HCL 10 MG TABLET DIRECTED ORALLY TID PRN TAKING MAY HAVE - - FLUTICASONE PROPIONATE AND SALMETEROL INHALATION POWDER 113 MCG/14 MCG INH 1 PUFF BY MOUTH TWICE DAILY, RINSE MOUTH AFTER USE TAKING IBUPROFEN 200 MG TABLET 3 TABLETS WITH FOOD OR MILK NEEDED ORALLY THREE TIMES A DAY TAKING ACETAMINOPHEN EXTRA STRENGTH 500 MG TABLET 2 TABLETS NEEDED ORALLY 3 TIMES A DAY NOT-TAKING AMLODIPINE BESYLATE 5 MG TABLET 1 TABLET ORALLY ONCE A DAY NOT-TAKING MOBIC 7.5 MG TABLET 1 TABLET ORALLY ONCE A DAY MEDICATION LIST REVIEWED AND RECONCILED WITH THE PATIENT PAST MEDICAL HISTORY HTN COPD LUMBAGO OF LUMBAR REGION WITH SCIATICA SLEEP APNEA ALLERGIES N.K.D.A. SURGICAL HISTORY TONSILLECTOMY COLONSCOPY FAMILY HISTORY FATHER: MOTHER: 2 SISTER(S) . 1 SON(S) , 1 DAUGHTER(S) - HEALTHY. SOCIAL HISTORY GENERAL: TOBACCO USE ARE YOU A:CURRENT SMOKER ARE YOU INTERESTED IN QUITTING?READY TO QUIT COUNSELED THE PATIENT ON TOBACCO USE, CESSATION [id number]/11/2020 LATEX QUESTIONNAIRE LATEX ALLERGY : HAVE YOU EVER DEVELOPED ANY TYPE OF REACTION AFTER HANDLING LATEX PRODUCTS SUCH RUBBER GLOVES, CONDOMS, DIAPHRAGMS, BALLOONS, SOCKS, OR UNDERWEAR?NO LATEX ALLERGY : HAVE YOU EVER DEVELOPED ANY TYPE OF REACTION DURING OR AFTER DENTAL APPOINTMENT, VAGINAL/RECTAL EXAMINATION, SURGICAL PROCEDURE, OR ANY OTHER EXPOSURE?NO DATE ASKED : 01/10/2020 LATEX RISK : HAVE YOU EVER HAD ANY DIFFICULTY BREATHING OR HIVES AFTER EATING OR HANDLING ANY FRUITS, OR VEGETABLES; SUCH KIWI, BANANAS, STONE FRUITS, OR CHESTNUTSNO LATEX RISK : DO YOU HAVE A PREVIOUS PERSONAL HISTORY OF MORE THAN NINE SURGERIES, SPINA BIFIDA, OR REPEATED CATHERIZATIONS? NO LATEX RISK : ARE YOU FREQUENTLY EXPOSED TO LATEX PRODUCTS IN YOUR OCCUPATION?NO ALCOHOL SCREENING DID YOU HAVE A DRINK CONTAINING ALCOHOL IN THE PAST YEAR?NO POINTS0 INTERPRETATIONNEGATIVE RECREATIONAL DRUG USE DRUG USE?NO LANGUAGE LANGUAGES SPOKEN:ARMENIAN LEARNING BARRIERS / SPECIAL NEEDS CHANGE FROM LAST VISIT?NO BARRIERS TO LEARNING?NO HEARING IMPAIRED?YES DOES NOT HAVE HEARING AIDS VISION IMPAIRED?YES COGNITIVELY IMPAIRED?NO READINESS TO LEARN?YES LEARNING PREFERENCES?NO LEARNING CAPABILITIES PRESENT?YES EMOTIONAL BARRIERS?NO SPECIAL DEVICES?NO MACHINE PACKAGING TECHNICIAN NEEDED?NO PAIN CLINIC PFS, CLERGY, PUBLIC HEALTH REFERRALS HAS THE PATIENT BEEN EDUCATED REGARDING HIS/HER PLAN OF CARE?YES HAS THE PATIENT BEEN EDUCATED REGARDING PAIN, THE RISK FOR PAIN, THE IMPORTANCE OF EFFECTIVE PAIN MANAGEMENT, AND THE PAIN ASSESSMENT PROCESS?YES ADVANCE DIRECTIVE ADVANCE DIRECTIVE DISCUSSED WITH PATIENT: INFORMATION PROVIDED. HOSPITALIZATION/MAJOR DIAGNOSTIC PROCEDURE DENIES PAST HOSPITALIZATION REVIEW OF SYSTEMS CONSTITUTIONAL: ANY RECENT FEVER NO . CHILLS NO . WEIGHT CHANGE OF UNKNOWN REASONS NO . GASTROENTEROLOGY: NEW UNEXPLAINABLE CHANGES IN BOWEL CONTROL NO . CONSTIPATION NO . GENITOURINARY: ANY NEW CHANGE IN BLADDER CONTROL? NO . NEUROLOGY: NEW ONSET DIZZINESS OR NEUROLOGICAL CHANGES NOT MENTIONED NO . NEW NUMBNESS OR PAIN PATTERNS NOT MENTIONED AND PERTINENT TO TODAY'S VISIT NO . CARDIOLOGY: NEW CHEST PRESSURE NO . NEW CHEST PAIN NO . RESPIRATORY: UNEXPLAINABLE COUGH NO . NEW SHORTNESS OF BREATH NO . VITAL SIGNS WT 118.2 LBS, HT 63 IN, BMI 20.94 INDEX, BP 142/99 MM HG, HR 113 /MIN, RR 18 /MIN, TEMP 98.0 F, OXYGEN SAT % 98%, NA INITIALS AW 0853. EXAMINATION GENERAL EXAMINATION: GENERAL AWAKE,ALERT ,PLEASANT . PSYCH AFFECT NORMAL . FACE:UNREMARKABLE. NECK:NO LYMPHADENOPATHY, SUPPLE. LUNGS: LUNG DISLA ARE CLEAR TO AUSCULTATION BILATERALLY. GOOD MOVEMENT OF AIR . HEART: S1, S2 IN A REGULAR RATE AND RHYTHM. NO SIGNIFICANT MURMURS, RUBS OR GALLOPS NOTED . MUSCULOSKELETAL:NORMAL RANGE OF MOTION. LUMBAR: TRIGGER POINTS:, ELICITED WITH PALPATION OVER LUMBAR PARAVERTEBRAL MUSCLES.. DIAGNOSTIC TESTS REVIEWED MRI L/S SPINE-01/24/2020. ASSESSMENTS LUMBAR FACET ARTHROPATHY - M47.816 (PRIMARY) PROTRUSION OF LUMBAR INTERVERTEBRAL DISC - M51.26 TREATMENT LUMBAR FACET ARTHROPATHY NOTES: CONTINUE IBUPROFEN 600 MG AND ACETAMINOPHEN 1000 MILLIGRAMS 3 TIMES A DAY. ADVISED NOT TO TAKE MORE NONSTEROIDAL MEDICATION THAN WHAT WAS DISCUSSED DUE TO POTENTIAL COMPLICATIONS. REFERRAL WILL BE MADE TO ORTHOPEDIC SURGEON. FOLLOW-UP WILL BE SCHEDULED IN 3 MONTHS TO DISCUSS SURGICAL EVALUATION AND POSSIBLY CONSIDER INTERVENTIONAL THERAPY IF HE DESIRES. [facility] REASON:PATIENT HAS FAILED CONSERVATIVE CARE AND IS NOT INTERESTED IN DOING INTERVENTIONAL THERAPY/REVIEW ABNORMAL MRI 01/24/2020 OF LS SPINE AND DISCUSS SURGICAL OPTIONS PROCEDURE CODES FA211 ESTABILISHED PATIENT [facility] CHARGE DISPOSITION & COMMUNICATION FOLLOW UP 3 MONTHS (REASON: FOLLOW-UP ON SURGICAL EVALUATION/CONSIDER PROCEDURES/LOW BACK PAIN) ELECTRONICALLY SIGNED BY JIN LEROY ON 03/18/2020 AT 09:00 AM EST DISCLAIMER : THIS IS A VISIT SUMMARY EXTRACTED FROM THE [employer] CHART. IT IS NOT A COPY OF THE [employer] PROGRESS NOTE. DEMARCO
== END ==
LOC: M PAIN 09:00
PROVIDERS: ATTEND Nurse Practitioner Family
DX: M51.26 Other intervertebral disc displacement, lumbar region (principal); G89.29 Other chronic pain; J44.9 Chronic obstructive pulmonary disease, unspecified; G47.30 Sleep apnea, unspecified; F17.200 Nicotine dependence, unspecified, uncomplicated; Z79.899 Other long term (current) drug therapy

== ENCOUNTER 2020-04-26 06:33 | Emergency (ER) | payer BC ==
[~2020-04-26] VITALS: Ht 160 cm; Wt 53.6 kg
[~2020-04-26 06:33] MED LIST changes: -LISI-538 PO; +LISI20TA33 PO
[2020-04-26] MEDS ORDERED: NS 1,000 ML IV ONE (06:45)
[2020-04-26] MEDS ORDERED: ASPIRIN 81 MG CHEW TABLET PO ONE (06:45)
[2020-04-26 06:58] LABS: BASO # 0.1 10^3/uL (0.0-0.2); BASO % 0.8 % (0.0-1.0); EOS # 0.2 10^3/uL (0.0-0.5); EOS % 1.8 % (0.0-3.0); HEMATOCRIT 48.1 % (42.0-52.0); HEMOGLOBIN 15.8 g/dl (13.5-17.5); LYMPH # 1.9 10^3/uL (1.5-5.0); LYMPH % 16.6 % (24.0-44.0); MEAN CORPUSCULAR HEMOGLOBIN 30.6 pg (27.0-33.0); MEAN CORPUSCULAR HGB CONC 32.8 g/dl (32.0-36.5); MEAN CORPUSCULAR VOLUME 93.2 fl (80.0-96.0); MONO # 0.7 10^3/uL (0.0-0.8); MONO % 5.9 % (0.0-5.0); NEUTROPHILS # 8.5 10^3/uL (1.5-8.5); NEUTROPHILS % 74.5 % (36.0-66.0); PLATELET COUNT, AUTOMATED 321 10^3/uL (150-450); RED BLOOD COUNT 5.16 10^6/uL (4.30-6.10); WHITE BLOOD COUNT 11.4 10^3/uL (4.0-10.0)
[2020-04-26] MEDS ORDERED: DULO1CAP5 PO (06:59)
[2020-04-26] MEDS ORDERED: TIZA4TAB4 PO (06:59)
[2020-04-26] MEDS ORDERED: ALBU8.5H INH (06:59)
[2020-04-26] MEDS ORDERED: ATOR1TAB19 PO (06:59)
[2020-04-26 07:15] LABS: PROTHROMBIN TIME 13.4 SECONDS (12.5-14.3)
[2020-04-26 07:16] LABS: PARTIAL THROMBOPLASTIN TIME 32.7 SECONDS (24.2-38.5)
[2020-04-26 07:28] LABS: CALCIUM LEVEL 9.6 MG/DL (8.8-10.2); CREATININE FOR GFR 1.45 MG/DL (0.70-1.30); GLOMERULAR FILTRATION RATE 52.7 (>49); POTASSIUM SERUM 4.1 MEQ/L (3.5-5.1); THYROID STIMULATING HORMONE 1.76 uIU/ML (0.358-3.740)
--- NOTE | 2020-04-26 08:09 | REP ---
INDICATION: CHEST PAIN. COMPARISON: 09/23/2018 a two view exam TECHNIQUE: Portable FINDINGS: The technique utilized in obtaining the radiograph has magnified the cardiac silhouette and accentuated the interstitial markings. The superior mediastinal structures are midline. The cardiac silhouette is unremarkable in size, shape, and position. The diaphragmatic surfaces of the lungs are regular, and the costophrenic angles are clear. The pulmonary de jesus are clear. The imaged osseous structures are intact. IMPRESSION: There is no acute cardiopulmonary disease. <Electronically signed by Raymond Sullivan > 04/26/20 0838
[2020-04-26 08:14] LABS: CK-MB VALUE MASS 1.4 NG/ML (<3.6); CPK CREATINE PHOSPHOKINASE 95 U/L (39-308); MB/CK RELATIVE INDEX 1.47 (< OR =4); TROPONIN I < 0.02 NG/ML (< 0.10)
[2020-04-26 09:22] LABS: MAGNESIUM LEVEL 2.5 MG/DL (1.8-2.4)
[2020-04-26] MEDS ORDERED: METOPROLOL SUCC (TopROL XL) 50MG **XL** TAB PO ONE (11:00)
[2020-04-26 11:04] VITALS: BP 153/88
[2020-04-26 11:22] LABS: CK-MB VALUE MASS 1.7 NG/ML (<3.6); MB/CK RELATIVE INDEX 2.54 (< OR =4); TROPONIN I 0.04 NG/ML (< 0.10)
[2020-04-26] MEDS ORDERED: METO1TAB7 PO (11:28)
[2020-04-26 11:51] VITALS: BP 148/94
--- NOTE | 2020-04-27 08:07 | ECGEPIP ---
[facility] - ED Test Date: 2020-04-26 Pat Name: JUNIOR PALUMBO Department: Room: - Gender: Male Java Front End Web Developer: weston : 1960 Requested By: NOEMI LUBIN Order Number: [id number] Reading MD: Jaspreet Donovan Measurements Intervals [place] Rate: 114 P: 80 MD: 175 QRS: 73 QRSD: 83 T: 71 QT: 323 QTc: 445 Interpretive Statements SINUS TACHYCARDIA POSSIBLE INCOMPLETE RIGHT BUNDLE BRANCH BLOCK BASELINE ARTIFACT AFFECTS INTERPRETATION RATE CHANGE COMPARED TO 10/16/15 Electronically Signed on 04-27-2020 8:07:21 EST by Jaspreet Donovan
--- NOTE | 2020-04-27 08:08 | ECGEPIP ---
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
== END 2020-04-26 12:00 | disposition home or self-care (01) ==
LOC: M ED 06:33
DX: R00.0 Tachycardia, unspecified (principal); T43.215A Adverse effect of selective serotonin and norepinephrine reuptake inhibitors, initial encounter; I10 Essential (primary) hypertension; F17.200 Nicotine dependence, unspecified, uncomplicated; Z79.51 Long term (current) use of inhaled steroids; Z79.899 Other long term (current) drug therapy

== ENCOUNTER → 2020-05-09 | Outpatient (REF) | payer BC ==
[~2020-05-09] MED LIST changes: +ALBU8.5H INH; +ATOR1TAB19 PO; +DULO1CAP5 PO; +LISI-538 PO; -LISI20TA33 PO; +METO1TAB7 PO; +TIZA4TAB4 PO
[2020-05-09 17:05] LABS: ALT/SGPT 15 U/L (12-78); BILIRUBIN,TOTAL 0.3 MG/DL (0.2-1.0); BLOOD UREA NITROGEN 18 MG/DL (7-18); CALCIUM LEVEL 9.3 MG/DL (8.8-10.2); CARBON DIOXIDE LEVEL 28 MEQ/L (21-32); CHLORIDE LEVEL 106 MEQ/L (98-107); CREATININE FOR GFR 0.93 MG/DL (0.70-1.30); GLOMERULAR FILTRATION RATE > 60.0 (>49); GLUCOSE, FASTING 114 MG/DL (70-100); MAGNESIUM LEVEL 2.4 MG/DL (1.8-2.4); POTASSIUM SERUM 4.8 MEQ/L (3.5-5.1); SODIUM LEVEL 142 MEQ/L (136-145); TOTAL PROTEIN 6.8 GM/DL (6.4-8.2)
== END ==
LOC: M LAB REF 16:09
PROVIDERS: ATTEND Physician Assistant
DX: I10 Essential (primary) hypertension (principal)

== ENCOUNTER → 2020-10-30 | Outpatient (CLI) | payer BC ==
[~2020-10-30] MED LIST changes: -LISI-538 PO; +LISI20TA33 PO
--- NOTE | 2020-10-30 10:04 | REP ---
INDICATION: SHORTNESS OF BREATH, ABN FINDING OF LUNG-CT 1ST AND PFT 2ND. COMPARISON: Low-dose CT 11/30/2019, 09/29/2017; AP portable 04/26/2020 TECHNIQUE: Low-dose CT lung screening protocol FINDINGS: In the right lung peripherally in the upper lobe on image 42 is stable calcified granuloma with another posteriorly on image 22 in the right upper lobe. These are unchanged. There are a few 3-5 mm non calcified nodules in the right lung unchanged in number and size in the right lower and right upper lobe. There are some new subtle ground-glass opacities superior segment of the left lower lobe in a perifissural distribution. There are others in the paraspinal subpleural region of the left lower lobe, also new findings. Pleural based small nodule posteriorly in the left upper lobe. The deep sulcus left lower lobe shows a zone of atelectatic change with nodular 8 mm component. This is 98. There is cylindrical bronchiectatic change. There is no pleural effusion, dense consolidation or parenchymal mass. Heart is not enlarged. There is no pericardial thickening or effusion. Subcentimeter mediastinal nodes present without pathologic sized adenopathy. Trace amount of fluid in the superior pericardial recess. No hilar, axillary or supraclavicular pathologic sized adenopathy noted. The aorta has calcifications at the arch and descending portion without aneurysm. Bone windows of the spine shows some mild lumbar and lower thoracic spondylosis and marginal osteophytes but no compression deformity or destructive lesion. The sternum, manubrium, medial clavicles, scapulae, humeral heads and visualized ribs were all unremarkable. The upper abdomen shows liver and spleen without focal abnormality. The gallbladder shows no calcified stone. Adrenal glands without mass. There is no hiatal hernia. Pancreas intact. Upper poles kidneys unremarkable. Visualized bowel loops in the upper abdomen intact. IMPRESSION: 1. The right lung with multiple calcified and non calcified nodules which are unchanged from the studies over the past 3 years. 2. The left lung shows new ground-glass opacities in the superior segment of the left lower lobe and 8 mm nodule and zone of the atelectatic change in the deep sulcus left lower lobe on image 98. This finding would correlate to a lung RADS category 4A suspicious, suspicious finding with a part solid nodule CT has a 6 mm or greater solid component. Recommendation for follow-up in 3 months with low-dose CT or PET-CT may be used when there is an 8 mm or larger solid component. Patients with this category of finding have a 5-15% chance of malignancy the time of the examination. 3. No other significant or new finding. <Electronically signed by Cisco Pastrana > 10/30/20 1000
--- NOTE | 2020-10-30 10:23 | PFTRPT ---
Site: [facility], [address] [place] [address], [id number] ID: [id number] Name: JUNIOR PALUMBO Visit Date: 10/30/2020 Second ID: [id number] Referring Doctor: Shelby Del Castillo Reviewing Doctor: Conor Conklin MD Wire Spiral Binder: Rl SANTANA RRT Age: 60 : 1960 Sex: Male Race: Height: 63.00 Inches Weight: 112.00 Lbs BSA: 1.51 Order IDs: [id number] Requested Test(s): <RESP-PFT.PFT B/A> Diagnosis: R06.02 test appear to be valid, although the ATS standard for "end of test" was not met. Pt was given four puffs of albuterol for post bronchodilator. Review Status: Not Reviewed Pre-Bronch Post-Bronch Pred Actual %Pred Actual %Chng SPIROMETRY FVC (L) 3.60 4.08 113 4.05 FEV1 (L) 2.71 2.96 109 2.92 -1 FEV1/FVC (%) 75 73 96 72 FEF 25% (L/sec) 5.82 5.51 94 5.03 -8 FEF 50% (L/sec) 3.92 2.84 72 2.43 -14 FEF 75% (L/sec) 1.06 0.88 82 0.73 -16 FEF 25-75% (L/sec) 2.27 2.15 94 1.96 -9 FEF Max (L/sec) 7.60 7.02 92 7.18 2 FIVC (L) 3.82 3.82 FIF 50% (L/sec) 4.68 3.85 82 5.59 45 FIF Max (L/sec) 4.09 5.60 37 MVV (L/min) 115 102 88 Expiratory Time (sec) 7.01 6.66 -4 Back Extrap Vol (L) 0.09 0.09 Time To FEFmax (sec) 0.084 0.075 -10 LUNG VOLUMES SVC (L) 3.70 4.12 111 IC (L) 2.77 2.33 84 ERV (L) 0.93 1.79 192 TGV (L) 2.82 4.60 163 RV (Pleth) (L) 1.89 2.81 148 TLC (Pleth) (L) 5.59 6.93 123 RV/TLC (Pleth) (%) 33 41 122 DIFFUSION DLCOunc (ml/min/mmHg) 25.14 24.89 99 DLCOcor (ml/min/mmHg) 25.14 25.18 100 DL/VA (ml/min/mmHg/L) 4.50 4.28 95 VA (L) 5.59 5.88 105 BHT (sec) 10.50 IVC (L) 3.81 TLC (SB) (L) 6.03 AIRWAYS RESISTANCE Raw (cmH2O/L/s) 1.45 1.04 71 Gaw (L/s/cmH2O) 1.03 0.96 93 sRaw (cmH2O*s) 4.76 5.00 104 sGaw (1/cmH2O*s) 0.20 0.20 100 BLOOD GASES Hgb (gm/dL) 14.2
== END ==
LOC: M RAD 09:14
PROVIDERS: ATTEND Nurse Practitioner Adult Health
DX: R91.8 Other nonspecific abnormal finding of lung field (principal); R06.02 Shortness of breath

== ENCOUNTER → 2021-02-02 | Outpatient (CLI) | payer BC ==
--- NOTE | 2021-02-02 12:26 | REP ---
INDICATION: ABN FINDING OF LUNG. COMPARISON: 10/30/2020 11/30/2019 TECHNIQUE: Noncontrast CT with coronal and sagittal reconstructions. FINDINGS: Calcified granulomas in the right upper lobe are again seen along with few scattered 3 mm noncalcified nodules in the right upper and lower lobes. There is a pleural based 5 mm nodule in the paraspinal right upper lobe unchanged. Some apical pleuroparenchymal scarring bilaterally noted. Apical bulla on the right are unchanged. The perifissural left lower lobe ground-glass opacities from the October 2020 study are resolved. Other ground-glass areas in the medial basal segment of the left lower lobe in the subpleural region are fully resolved as well. Sub 4 mm left upper lobe nodule is unchanged as is a left lower lobe nodule. Some dependent atelectatic changes are seen in the deep sulcus left lower lobe with less confluence and nodularity medially than on the previous study, no mass. There is no pleural effusion or pleural based mass. A few areas of apical pleural thickening are noted bilaterally unchanged. Some cylindrical bronchiectatic changes again seen. No pneumothorax or pneumomediastinum. No gross cardiomegaly, pericardial thickening or effusion seen. Atherosclerotic calcifications of the arch and descending aorta are present. No pathologic sized mediastinal, hilar, axillary or supraclavicular adenopathy. Bone windows show no change from the previous studies or any acute abnormality. Visualized portion of upper abdominal structures show a few scattered low-density areas in the liver suggesting small cysts in these are unchanged adrenal glands are unchanged without gross mass and slight thickening of the limbs. Upper poles of kidneys unchanged. The aorta with calcifications but no gross aneurysm. No definite adenopathy visible. IMPRESSION: 1. Multiple stable calcified and noncalcified nodules in the lung de jesus bilaterally. The ground-glass opacities in the superior segment of the left lower lobe and paraspinal region medial basal segment of the lower lobar fully resolved. Dependent atelectatic changes in the deep sulcus left lower lobe are improved. The part solid nodularity of this deep sulcus finding in the left lower lobe on previous study is resolved with only atelectatic changes suggested. Accordingly with the clearing of the left lower lobe nodular component of atelectatic change and resolution of the ground-glass opacities in the left lung, follow-up CT in 1 year warranted with the Fleischner society recommendations. No other significant or new finding. <Electronically signed by Cisco Pastrana > 02/02/21 [id number]
== END ==
LOC: M RAD 08:44
PROVIDERS: ATTEND Nurse Practitioner Adult Health
DX: R91.1 Solitary pulmonary nodule (principal)

== ENCOUNTER → 2021-09-24 | Outpatient (CLI) | payer BC ==
[~2021-09-24] MED LIST changes: +TIZA10TA PO; -TIZA4TAB4 PO
== END ==
LOC: M PAIN 10:30
PROVIDERS: ATTEND Nurse Practitioner Family
DX: M51.16 Intervertebral disc disorders with radiculopathy, lumbar region (principal); I10 Essential (primary) hypertension; J44.9 Chronic obstructive pulmonary disease, unspecified; G47.30 Sleep apnea, unspecified; M25.551 Pain in right hip; M25.552 Pain in left hip; F41.9 Anxiety disorder, unspecified; F32.A Depression, unspecified; E78.00 Pure hypercholesterolemia, unspecified; G43.909 Migraine, unspecified, not intractable, without status migrainosus; F17.210 Nicotine dependence, cigarettes, uncomplicated; Z79.899 Other long term (current) drug therapy; Z88.8 Allergy status to other drugs, medicaments and biological substances

== ENCOUNTER → 2022-02-05 | Outpatient (REF) | payer BC ==
[2022-02-05 13:13] LABS: BLOOD UREA NITROGEN 18 MG/DL (7-18); CALCIUM LEVEL 9.2 MG/DL (8.8-10.2); CARBON DIOXIDE LEVEL 26 MEQ/L (21-32); CHLORIDE LEVEL 107 MEQ/L (98-107); CREATININE FOR GFR 0.88 MG/DL (0.70-1.30); GLOMERULAR FILTRATION RATE > 60.0 (>49); GLUCOSE, FASTING 96 MG/DL (70-100); POTASSIUM SERUM 4.9 MEQ/L (3.5-5.1); SODIUM LEVEL 137 MEQ/L (136-145)
== END ==
LOC: M LAB REF 12:00
PROVIDERS: ATTEND Physician Assistant
DX: I10 Essential (primary) hypertension (principal)

== ENCOUNTER → 2022-02-22 | Outpatient (CLI) | payer BC | LOC: M PLAIMG 12:31 | PROVIDERS: ATTEND Nurse Practitioner Adult Health | DX: R91.8 Other nonspecific abnormal finding of lung field (principal) ==

== ENCOUNTER → 2022-02-24 | Outpatient (CLI) | payer BC | LOC: M LABSMTC 10:43 | PROVIDERS: ATTEND Anesthesiology | DX: Z01.812 Encounter for preprocedural laboratory examination (principal); Z20.822 Contact with and (suspected) exposure to COVID-19 ==

== ENCOUNTER → 2022-03-01 | Outpatient (CLI) | payer BC ==
[~2022-03-01] MED LIST changes: +ISOVUE-M 300 61% 15ML VIAL As Ordered ONE; +LIDOCAINE 1% SDV 30ML VIAL As Ordered ONE; +NORCO, ANEXSIA 5/325MG TABLET (HYDROcodone/ACETAMINOPHEN) As Ordered ONE; +diazePAM 5MG TABLET As Ordered ONE; +methylPREDNISolone SUSP 40MG/ML 1ML VIAL (DEPO MEDROL) As Ordered ONE
== END ==
LOC: M PAIN 14:30
PROVIDERS: ATTEND Anesthesiology
DX: M51.16 Intervertebral disc disorders with radiculopathy, lumbar region (principal); I10 Essential (primary) hypertension; J44.9 Chronic obstructive pulmonary disease, unspecified; G47.30 Sleep apnea, unspecified; M25.551 Pain in right hip; M25.552 Pain in left hip; F41.9 Anxiety disorder, unspecified; F32.A Depression, unspecified; E78.00 Pure hypercholesterolemia, unspecified; G43.909 Migraine, unspecified, not intractable, without status migrainosus; F17.210 Nicotine dependence, cigarettes, uncomplicated; Z79.899 Other long term (current) drug therapy; Z88.8 Allergy status to other drugs, medicaments and biological substances
CPT/HCPCS: 62323; J1030

== ENCOUNTER → 2022-03-15 | Outpatient (CLI) | payer BC ==
[~2022-03-15] MED LIST changes: -ISOVUE-M 300 61% 15ML VIAL As Ordered ONE; -LIDOCAINE 1% SDV 30ML VIAL As Ordered ONE; -NORCO, ANEXSIA 5/325MG TABLET (HYDROcodone/ACETAMINOPHEN) As Ordered ONE; -diazePAM 5MG TABLET As Ordered ONE; -methylPREDNISolone SUSP 40MG/ML 1ML VIAL (DEPO MEDROL) As Ordered ONE
== END ==
LOC: M PAIN 11:30
PROVIDERS: ATTEND Nurse Practitioner Family
DX: M51.16 Intervertebral disc disorders with radiculopathy, lumbar region (principal); G89.29 Other chronic pain; G47.30 Sleep apnea, unspecified; I10 Essential (primary) hypertension; J44.9 Chronic obstructive pulmonary disease, unspecified; G43.909 Migraine, unspecified, not intractable, without status migrainosus; F17.210 Nicotine dependence, cigarettes, uncomplicated; Z86.59 Personal history of other mental and behavioral disorders; Z88.8 Allergy status to other drugs, medicaments and biological substances; Z79.899 Other long term (current) drug therapy

== ENCOUNTER → 2022-06-07 | Outpatient (CLI) | payer BC | LOC: M PLAIMG 08:56 | PROVIDERS: ATTEND Nurse Practitioner Adult Health | DX: R91.8 Other nonspecific abnormal finding of lung field (principal) ==

== ENCOUNTER → 2022-06-10 | Outpatient (CLI) | payer BC ==
[2022-06-10 13:12] LABS: BASO # 0.1 10^3/uL (0.0-0.2); BASO % 0.6 % (0.0-1.0); EOS # 0.3 10^3/uL (0.0-0.5); EOS % 2.4 % (0.0-3.0); HEMATOCRIT 41.4 % (42.0-52.0); HEMOGLOBIN 13.1 g/dl (13.5-17.5); LYMPH # 1.1 10^3/uL (1.5-5.0); MEAN CORPUSCULAR HEMOGLOBIN 30.3 pg (27.0-33.0); MEAN CORPUSCULAR HGB CONC 31.6 g/dl (32.0-36.5); MEAN CORPUSCULAR VOLUME 95.8 fl (80.0-96.0); MONO # 1.2 10^3/uL (0.0-0.8); MONO % 10.1 % (2.0-8.0); NEUTROPHILS % 77.6 % (36.0-66.0); PLATELET COUNT, AUTOMATED 391 10^3/uL (150-450); RED BLOOD COUNT 4.32 10^6/uL (4.30-6.10); WHITE BLOOD COUNT 11.6 10^3/uL (4.0-10.0)
[2022-06-10 13:41] LABS: LIPASE 156 U/L (12-53)
[2022-06-10 13:42] LABS: AMYLASE 124 U/L (30-118)
[2022-06-10 13:43] LABS: ALBUMIN 3.3 G/DL (3.2-5.2); ALKALINE PHOSPHATASE 461 U/L (46-116); ALT/SGPT 97 U/L (7.0-40); AST/SGOT 84 U/L (<34); BLOOD UREA NITROGEN 18 MG/DL (9-23); CALCIUM LEVEL 8.8 MG/DL (8.3-10.6); CARBON DIOXIDE LEVEL 28 MMOL/L (20-31); CHLORIDE LEVEL 105 MMOL/L (98-107); CREATININE FOR GFR 0.58 MG/DL (0.70-1.30); GLOMERULAR FILTRATION RATE > 60.0 (>49); GLUCOSE, FASTING 174 MG/DL (74-106); POTASSIUM SERUM 4.1 MMOL/L (3.5-5.1); SODIUM LEVEL 140 MMOL/L (136-145); TOTAL PROTEIN 6.5 G/DL (5.7-8.2)
[2022-06-10 13:45] LABS: THYROID STIMULATING HORMONE 0.759 uIU/ML (0.55-4.78)
== END ==
LOC: M RAD 12:26 → M EKG 12:26
PROVIDERS: ATTEND Physician Assistant
DX: R07.9 Chest pain, unspecified (principal)

== ENCOUNTER → 2022-06-28 | Outpatient (REF) | payer BC ==
[2022-06-28 17:01] LABS: LIPASE 80 U/L (12-53)
[2022-06-28 17:03] LABS: ALBUMIN 2.7 G/DL (3.2-5.2); ALKALINE PHOSPHATASE 752 U/L (46-116); ALT/SGPT 91 U/L (7.0-40); AST/SGOT 111 U/L (<34); BASO # 0.1 10^3/uL (0.0-0.2); BASO % 0.3 % (0.0-1.0); BILIRUBIN,TOTAL 9.9 MG/DL (0.3-1.2); BLOOD UREA NITROGEN 15 MG/DL (9-23); CALCIUM LEVEL 8.6 MG/DL (8.3-10.6); CARBON DIOXIDE LEVEL 28 MMOL/L (20-31); CHLORIDE LEVEL 100 MMOL/L (98-107); CREATININE FOR GFR 0.58 MG/DL (0.70-1.30); EOS # 0.2 10^3/uL (0.0-0.5); EOS % 1.5 % (0.0-3.0); GLOMERULAR FILTRATION RATE > 60.0 (>49); GLUCOSE, FASTING 166 MG/DL (74-106); HEMATOCRIT 40.9 % (42.0-52.0); HEMOGLOBIN 13.1 g/dl (13.5-17.5); LYMPH # 0.9 10^3/uL (1.5-5.0); LYMPH % 6.1 % (24.0-44.0); MEAN CORPUSCULAR HEMOGLOBIN 30.1 pg (27.0-33.0); NEUTROPHILS # 11.9 10^3/uL (1.5-8.5); NEUTROPHILS % 79.4 % (36.0-66.0); PLATELET COUNT, AUTOMATED 476 10^3/uL (150-450); POTASSIUM SERUM 4.3 MMOL/L (3.5-5.1); RED BLOOD COUNT 4.35 10^6/uL (4.30-6.10); SODIUM LEVEL 137 MMOL/L (136-145); TOTAL PROTEIN 6.1 G/DL (5.7-8.2)
[2022-06-28 17:06] LABS: AMYLASE 61 U/L (30-118)
[2022-06-28 18:44] LABS: CA19-9 TUMOR MARKER,CARBOHYDRA 42972.1 U/ML (<35.0)
[2022-06-28 19:42] LABS: MONO # 1.8 10^3/uL (0.0-0.8)
== END ==
LOC: M LAB REF 16:22
PROVIDERS: ATTEND Physician Assistant
DX: K86.89 Other specified diseases of pancreas (principal); R17 Unspecified jaundice; R11.0 Nausea

== ENCOUNTER → 2022-06-30 | Outpatient (CLI) | payer BC ==
[~2022-06-30] MED LIST changes: +GASTROGRAFIN SOLUTION 30ML As Ordered ONE; +ISOVUE-370 76% 100ML VIAL As Ordered ONE
== END ==
LOC: M RAD 08:21
PROVIDERS: ATTEND Physician Assistant
DX: R12 Heartburn (principal); R11.0 Nausea; R14.0 Abdominal distension (gaseous); I77.89 Other specified disorders of arteries and arterioles
CPT/HCPCS: 74177; Q9963; Q9967

== ENCOUNTER 2022-07-07 11:13 | Inpatient (IN) | payer BC ==
[2022-07-07] VITALS (8 sets, daily range): BP systolic 127–139; BP diastolic 79–83; O2SAT 98
[~2022-07-07] VITALS: Ht 160 cm; Wt 49.6 kg
[~2022-07-07 11:13] MED LIST changes: -GASTROGRAFIN SOLUTION 30ML As Ordered ONE; -ISOVUE-370 76% 100ML VIAL As Ordered ONE
[2022-07-07] MEDS ORDERED: TAMS1CAP17 PO (12:11)
[2022-07-07] MEDS ORDERED: AMLO1TAB25 PO (12:11)
[2022-07-07] MEDS ORDERED: LISI20TA33 PO (12:11)
[2022-07-07] MEDS ORDERED: ONDA8TAB8 PO (12:11)
[2022-07-07] MEDS ORDERED: TRAM50TA2 PO (12:11)
[2022-07-07] MEDS ORDERED: SERT50TA29 PO (12:11)
[2022-07-07] MEDS ORDERED: ATOR1TAB19 PO (12:12)
[2022-07-07] MEDS ORDERED: HOME MED LIST COMPLETE! XX SCH (12:15)
[2022-07-07] MEDS ORDERED: NS 1,000 ML IV SCH (12:25)
[2022-07-07] MEDS ORDERED: PIPERACILLIN/TAZOBACTAM SOD 3.375 GM in D5W MINI-BAG PLUS 50 ML IV ONE (12:25)
[2022-07-07 12:34] LABS: BASO % 0.2 % (0.0-1.0); EOS # 0.1 10^3/uL (0.0-0.5); EOS % 0.6 % (0.0-3.0); HEMOGLOBIN 11.1 g/dl (13.5-17.5); LYMPH # 0.6 10^3/uL (1.5-5.0); LYMPH % 3.6 % (24.0-44.0); MEAN CORPUSCULAR HEMOGLOBIN 29.6 pg (27.0-33.0); MEAN CORPUSCULAR HGB CONC 33.6 g/dl (32.0-36.5); MONO % 13.3 % (2.0-8.0); NEUTROPHILS # 14.5 10^3/uL (1.5-8.5); NEUTROPHILS % 81.6 % (36.0-66.0); PLATELET COUNT, AUTOMATED 313 10^3/uL (150-450); RED BLOOD COUNT 3.75 10^6/uL (4.30-6.10); WHITE BLOOD COUNT 17.8 10^3/uL (4.0-10.0)
[2022-07-07 12:52] LABS: INR 1.69; PROTHROMBIN TIME 20.2 SECONDS (12.5-14.5)
[2022-07-07 12:59] LABS: ALKALINE PHOSPHATASE 700 U/L (46-116); ALT/SGPT 84 U/L (7.0-40); AST/SGOT 114 U/L (<34); BILIRUBIN,DIRECT > 15.0 MG/DL (<0.4); BILIRUBIN,TOTAL 18.9 MG/DL (0.3-1.2); BLOOD UREA NITROGEN 12 MG/DL (9-23); CALCIUM LEVEL 7.8 MG/DL (8.3-10.6); CARBON DIOXIDE LEVEL 28 MMOL/L (20-31); CHLORIDE LEVEL 101 MMOL/L (98-107); CREATININE FOR GFR 0.61 MG/DL (0.70-1.30); GLOMERULAR FILTRATION RATE > 60.0 (>49); GLUCOSE, FASTING 132 MG/DL (74-106); LIPASE 35 U/L (12-53); POTASSIUM SERUM 3.9 MMOL/L (3.5-5.1); SODIUM LEVEL 136 MMOL/L (136-145); TOTAL PROTEIN 5.3 G/DL (5.7-8.2)
[2022-07-07 13:04] LABS: RSV AMPLIFICATION NEGATIVE (NEGATIVE)
[2022-07-07 13:20] LABS: MONO # 2.4 10^3/uL (0.0-0.8)
[2022-07-07] MEDS ORDERED: traMADol 50 MG TAB PO PRN (14:20)
[2022-07-07] MEDS ORDERED: MAALOX 30 ML SUSP *UDC PO PRN (14:20)
[2022-07-07] MEDS ORDERED: ONDANSETRON 4MG 2ML VIAL IV PRN ×2 (14:20→19:40)
[2022-07-07] MEDS ORDERED: MOM 30ML SUSPENSION UDC PO PRN (14:20)
[2022-07-07] MEDS: NS 1,000 ML IV SCH (14:20)
[2022-07-07] MEDS ORDERED: ALBUTEROL 90 MCG/ACT 8GM HFA INHALER INH PRN (14:20)
[2022-07-07] MEDS ORDERED: ACETAMINOPHEN TAB 650MG DOSE (2X325MG) PO ONE (16:30)
[2022-07-07] MEDS ORDERED: ISOVUE-300 61% 100ML VIAL As Ordered ONE (16:38)
[2022-07-07] MEDS ORDERED: fentaNYL 100 MCG/2 ML INJECTION As Ordered ONE (17:31)
[2022-07-07] MEDS ORDERED: ROCURONIUM BROMIDE 50MG/5ML VIAL As Ordered ONE (17:31)
[2022-07-07] MEDS ORDERED: propofoL 200 MG/20 ML VIAL As Ordered ONE (17:31)
[2022-07-07] MEDS ORDERED: ONDANSETRON 4MG 2ML VIAL As Ordered ONE (17:31)
[2022-07-07] MEDS ORDERED: LIDOCAINE 2% 100MG/5ML SDV (FOR ANES.) As Ordered ONE (17:31)
[2022-07-07] MEDS ORDERED: MIDAZOLAM INJ 2MG/2ML VIAL As Ordered ONE (17:32)
[2022-07-07] MEDS ORDERED: SUGAMMADEX SODIUM 500 MG/5 ML VIAL (BRIDION) As Ordered ONE (18:48)
[2022-07-07] MEDS ORDERED: PHENYLephrine 500MCG 5ML (100MCG/ML) SYRINGE As Ordered ONE (19:29)
[2022-07-07] MEDS ORDERED: ePHEDrine SULFATE 25 MG/5 ML(5MG/ML) SYRINGE As Ordered ONE (19:29)
[2022-07-07] MEDS ORDERED: oxyCODONE 5MG TAB PO PRN (19:40)
[2022-07-07] MEDS ORDERED: HYDROMORPHONE HCL 0.5 MG/ 0.5 ML SYRINGE IV PRN (19:40)
[2022-07-07] MEDS ORDERED: fentaNYL 100 MCG/2 ML INJECTION IV PRN (19:40)
[2022-07-07] MEDS ORDERED: METOCLOPRAMIDE INJ 10MG/2ML VIAL IV PRN (19:40)
[2022-07-07] MEDS: DOCUSATE SODIUM 100MG CAPSULE PO SCH (21:56)
[2022-07-07] MEDS: PIPERACILLIN/TAZOBACTAM SOD 3.375 GM in D5W MINI-BAG PLUS 50 ML IV SCH (21:56)
[2022-07-07 23:07] LABS: INR 1.71; PROTHROMBIN TIME 20.4 SECONDS (12.5-14.5)
[2022-07-08] VITALS (12 sets, daily range): BP systolic 112–130; BP diastolic 65–84; O2SAT 96–99
[2022-07-08] MEDS: PIPERACILLIN/TAZOBACTAM SOD 3.375 GM in D5W MINI-BAG PLUS 50 ML IV SCH ×2 (01:00→06:31)
[2022-07-08 06:09] LABS: BASO % 0.1 % (0.0-1.0); HEMATOCRIT 33.7 % (42.0-52.0); HEMOGLOBIN 11.3 g/dl (13.5-17.5); LYMPH # 0.3 10^3/uL (1.5-5.0); LYMPH % 2.3 % (24.0-44.0); MEAN CORPUSCULAR HEMOGLOBIN 29.4 pg (27.0-33.0); MEAN CORPUSCULAR HGB CONC 33.5 g/dl (32.0-36.5); MEAN CORPUSCULAR VOLUME 87.8 fl (80.0-96.0); MONO # 0.8 10^3/uL (0.0-0.8); MONO % 5.6 % (2.0-8.0); NEUTROPHILS # 12.6 10^3/uL (1.5-8.5); NEUTROPHILS % 91.2 % (36.0-66.0); PLATELET COUNT, AUTOMATED 338 10^3/uL (150-450); RED BLOOD COUNT 3.84 10^6/uL (4.30-6.10); WHITE BLOOD COUNT 13.8 10^3/uL (4.0-10.0)
[2022-07-08 06:17] LABS: INR 1.61; PROTHROMBIN TIME 19.4 SECONDS (12.5-14.5)
[2022-07-08 06:55] LABS: ALBUMIN 1.6 G/DL (3.2-5.2); ALKALINE PHOSPHATASE 608 U/L (46-116); ALT/SGPT 73 U/L (7.0-40); AST/SGOT 108 U/L (<34); BILIRUBIN,TOTAL 14.5 MG/DL (0.3-1.2); BLOOD UREA NITROGEN 12 MG/DL (9-23); CALCIUM LEVEL 7.6 MG/DL (8.3-10.6); CARBON DIOXIDE LEVEL 26 MMOL/L (20-31); CHLORIDE LEVEL 103 MMOL/L (98-107); CREATININE FOR GFR 0.51 MG/DL (0.70-1.30); GLOMERULAR FILTRATION RATE > 60.0 (>49); GLUCOSE, FASTING 177 MG/DL (74-106); MAGNESIUM LEVEL 2.1 MG/DL (1.8-2.4); POTASSIUM SERUM 3.8 MMOL/L (3.5-5.1); SODIUM LEVEL 139 MMOL/L (136-145); TOTAL PROTEIN 4.7 G/DL (5.7-8.2)
[2022-07-08] MEDS ORDERED: CIPROFLOXACIN 400 MG in IV 1 EA IV SCH (08:00)
[2022-07-08] MEDS ORDERED: TAMSULOSIN 0.4 MG CAP PO SCH (09:00)
[2022-07-08] MEDS ORDERED: metroNIDAZOLE 500 MG in IV 1 EA IV SCH (09:00)
[2022-07-08] MEDS ORDERED: SERTRALINE HCL 50 MG TAB PO SCH (09:00)
[2022-07-08] MEDS ORDERED: ATORVASTATIN 10 MG TAB PO SCH (09:00)
[2022-07-08] MEDS: DOCUSATE SODIUM 100MG CAPSULE PO SCH (09:21)
[2022-07-08] MEDS: NS 1,000 ML IV SCH (09:24)
[2022-07-08] MEDS ORDERED: LACTULOSE 20GM/30ML SYRUP UDC PO ONE (12:55)
[2022-07-08] MEDS ORDERED: CIPR-249 PO (13:51)
[2022-07-08] MEDS ORDERED: METR-265 PO (13:51)
[2022-07-08] MEDS ORDERED: COLA100C5 PO (13:51)
[2022-07-08] MEDS ORDERED: metroNIDAZOLE (FLAGYL) 500MG TABLET PO SCH (14:00)
[2022-07-08] MEDS ORDERED: CIPROFLOXACIN 500MG TABLET PO SCH (18:00)
== END 2022-07-08 15:48 | disposition home or self-care (01) | DRG 281 ==
LOC: M ED 11:13 → M ED INP 14:20 → ENRESERV 14:40 → M PCU 15:30
PROVIDERS: ADMIT Internal Medicine; ATTEND Internal Medicine
PROC: 0F798DZ Dilation of Common Bile Duct with Intraluminal Device, Via Natural or Artificial Opening Endoscopic (ICD-10-PCS; 2022-07-07)
PROC: 0FBD8ZX Excision of Pancreatic Duct, Via Natural or Artificial Opening Endoscopic, Diagnostic (ICD-10-PCS; 2022-07-07)
PROC: 0DB98ZX Excision of Duodenum, Via Natural or Artificial Opening Endoscopic, Diagnostic (ICD-10-PCS; principal; 2022-07-07 17:00)
DX: C25.3 Malignant neoplasm of pancreatic duct (principal); C78.7 Secondary malignant neoplasm of liver and intrahepatic bile duct; K83.1 Obstruction of bile duct; K83.8 Other specified diseases of biliary tract; F32.A Depression, unspecified; I10 Essential (primary) hypertension; D49.0 Neoplasm of unspecified behavior of digestive system; K59.00 Constipation, unspecified; J44.9 Chronic obstructive pulmonary disease, unspecified; G47.33 Obstructive sleep apnea (adult) (pediatric); N40.0 Benign prostatic hyperplasia without lower urinary tract symptoms; M47.816 Spondylosis without myelopathy or radiculopathy, lumbar region; F41.9 Anxiety disorder, unspecified; Z87.891 Personal history of nicotine dependence; Z79.899 Other long term (current) drug therapy

== ENCOUNTER → 2022-07-20 | Outpatient (CLI) | payer BC ==
[~2022-07-20] MED LIST changes: +AMLO1TAB25 PO; +CIPR-249 PO; +COLA100C5 PO; +METR-265 PO; +ONDA8TAB8 PO; +PROHANCE 279.3MG/ML 5ML VIAL As Ordered ONE; +SERT50TA29 PO; +TAMS1CAP17 PO; +TRAM50TA2 PO
== END ==
LOC: M RAD 14:36
PROVIDERS: ATTEND Internal Medicine Medical Oncology
DX: C25.0 Malignant neoplasm of head of pancreas (principal)
CPT/HCPCS: 70553; A9576